=== PATIENT | female | born 1990 ===

== ENCOUNTER 2020-08-17 11:34 | Outpatient (CLI) | payer OTHER ==
[2020-08-18 02:12] LABS: SARS-CoV-2 MS2 Positive; SARS-CoV-2 N Gene Negative; SARS-CoV-2 S Gene Negative; SARS-CoV-2 by NAA Not Detected (NotDetected); SARS-CoV-2 orf1ab Negative
== END 2020-08-17 11:35 | disposition home or self-care (01) ==
LOC: LABBT 11:34
PROVIDERS: ATTEND Obstetrics & Gynecology
DX: Z01.812 Encounter for preprocedural laboratory examination (principal); Z20.828 Contact with and (suspected) exposure to other viral communicable diseases
CPT/HCPCS: 87635; U0003

== ENCOUNTER 2020-08-21 19:45 | Inpatient (IN) | payer OTHER ==
[~2020-08-21 19:45] MED LIST: Bupivacaine 0.25% HCL 30 ML VIAL ONE; Bupivacaine HCl 0.25%/Epi 0.0005/PF 10 ML VIAL FS ONE; Sodium Chloride 0.9% (PF) 10 ML VIAL ONE; ePHEDrine 50 MG/ML VIAL ONE
[2020-08-21] MEDS ORDERED: Acetaminophen 500 MG TAB PO PRN (23:37)
[2020-08-21] MEDS ORDERED: Ibuprofen 800 MG TAB PO PRN (23:37)
[2020-08-21] MEDS ORDERED: Penicillin G Potassium 5 MILL.UNITS in Sodium Chloride 0.9% 100 ML IVPB SCH (23:37)
[2020-08-21] MEDS ORDERED: Docusate 100 MG CAP PO PRN (23:37)
[2020-08-21] MEDS ORDERED: Diphenoxylate HCl/Atropine Tablet PO PRN ×2 (23:37)
[2020-08-21] MEDS ORDERED: HYDROcodone/Acetaminophen 5/325 mg Tablet PO PRN ×2 (23:37)
[2020-08-21] MEDS ORDERED: Misoprostol 200 MCG TAB PR PRN (23:37)
[2020-08-21] MEDS ORDERED: Lidocaine 1% (PF) 30 ML VIAL SC PRN (23:37)
[2020-08-21] MEDS ORDERED: Promethazine HCl 25 MG/ML VIAL IM PRN (23:37)
[2020-08-21] MEDS ORDERED: hydrALAZINE 20 MG/ML VIAL SLOW IVP PRN (23:37)
[2020-08-21] MEDS ORDERED: Butorphanol Tartrate 1 MG/ML VIAL SLOW IVP PRN (23:37)
[2020-08-21] MEDS ORDERED: Ondansetron PF 4 MG/2 ML Vial IVP PRN (23:37)
[2020-08-21] MEDS ORDERED: Zolpidem Tartrate 5 MG TAB PO PRN (23:37)
[2020-08-21] MEDS ORDERED: Lactated Ringer's 1,000 ML IV SCH (23:37)
[2020-08-21 23:52] VITALS: BMI 54.7
[2020-08-22 00:11] LABS: Hemoglobin 11.4 g/dL (12.0-16.0); Mean Corpuscular HGB CONC 34.2 g/dL (32.0-36.0); Mean Corpuscular Hemoglobin 29.4 pg (27.0-31.0); Mean Corpuscular Volume 85.9 fL (78.0-98.0); Mean Platelet Volume 8.9 fL (7.4-10.4); Platelet Count 221 thou/uL (130-400); Red Blood Cell (RBC) Count 3.89 mill/uL (4.20-5.40)
[2020-08-22 00:42] LABS: Syphilis Antibody Nonreactive (Nonreactive); Syphilis Antibody Index 0.06 S/CO (<1.00 Non-Reactive)
[2020-08-22 01:45] LABS: HBSAg Index 0.13 S/CO (0-0.99); Hep B Surf Ag Non-Reactive S/CO (NonReactive)
[2020-08-22] MEDS ORDERED: Lactated Ringer's 1,000 ML IV SCH (07:15)
[2020-08-22] MEDS ORDERED: Dextrose 5%-Lactated Ringers 1,000 ML IV SCH (07:15)
[2020-08-22] MEDS: Misoprostol 100 MCG TAB VAG SCH (07:45)
[2020-08-22] MEDS: Penicillin G 2.5 MILL.units 2.5 MILL.UNITS in Premix Bag 1 BAG IVPB SCH ×2 (10:31→19:14)
[2020-08-22] MEDS ORDERED: Fentanyl 4 mcg/Bup 0.1% Cadd 100 ML ONE ×2 (11:03→19:49)
[2020-08-22] MEDS: NS w/ Oxytocin 30 units 500 ML IVPB SCH (12:20)
[2020-08-22] MEDS ORDERED: Lactated Ringer's 500 ML IV PRN (12:55)
[2020-08-22] MEDS ORDERED: Acetaminophen 325 MG TAB PO PRN ×2 (12:55→22:53)
[2020-08-22] MEDS ORDERED: Promethazine HCl 25 MG/ML VIAL IM PRN (12:55)
[2020-08-22] MEDS ORDERED: diphenhydrAMINE 50 MG/ML VIAL IVP PRN (12:55)
[2020-08-22] MEDS ORDERED: ePHEDrine 50 MG/ML VIAL SLOW IVP PRN (12:55)
[2020-08-22] MEDS ORDERED: Naloxone HCl 0.4 mg/ml Vial IVP PRN ×2 (12:55)
[2020-08-22] MEDS ORDERED: Ondansetron PF 4 MG/2 ML Vial IVP PRN ×2 (12:55→22:52)
[2020-08-22] MEDS ORDERED: Communication Order-Pharmacy FS SCH (13:00)
[2020-08-22] MEDS ORDERED: Fentanyl 4 mcg/Bupivacaine 0.1% Cassette 100 ML EPIDURAL SCH (13:00)
[2020-08-22] MEDS ORDERED: diphenhydrAMINE 25 MG CAP PO PRN (22:52)
[2020-08-22] MEDS ORDERED: Bisacodyl 10 MG SUPP PR PRN (22:52)
[2020-08-22] MEDS ORDERED: Lanolin Ointment 7 GM TUBE TOP PRN (22:52)
[2020-08-22] MEDS ORDERED: Preparation H Ointment 28 GM TUBE PR PRN (22:52)
[2020-08-22] MEDS ORDERED: Misoprostol 200 MCG TAB VAG PRN (22:52)
[2020-08-22] MEDS ORDERED: Milk Of Magnesia 30 ML UDCUP PO PRN (22:52)
[2020-08-22] MEDS ORDERED: hydrALAZINE 20 MG/ML VIAL SLOW IVP PRN (22:52)
[2020-08-22] MEDS ORDERED: NS / Oxytocin 40 units/1000ml 1,000 ML IV SCH (23:00)
[2020-08-22] MEDS ORDERED: NS w/ Oxytocin 30 units 500 ML IV SCH (23:15)
[2020-08-23] MEDS: NS w/ Oxytocin 30 units 500 ML IVPB SCH ×14 (04:09→04:23)
[2020-08-23] MEDS: HYDROcodone/Acetaminophen 5/325 mg Tablet PO PRN ×4 (05:13→21:52)
[2020-08-23] MEDS: Benzocaine-Menthol 82.5 ML CAN TOP PRN (05:16)
[2020-08-23] MEDS: Misoprostol 100 MCG TAB VAG SCH ×2 (06:20→06:21)
[2020-08-23] MEDS: Penicillin G 2.5 MILL.units 2.5 MILL.UNITS in Premix Bag 1 BAG IVPB SCH ×2 (06:21→06:22)
[2020-08-23 07:09] LABS: Hemoglobin 10.8 g/dL (12.0-16.0); Mean Corpuscular HGB CONC 33.6 g/dL (32.0-36.0); Mean Corpuscular Hemoglobin 29.2 pg (27.0-31.0); Mean Corpuscular Volume 86.7 fL (78.0-98.0); Mean Platelet Volume 8.9 fL (7.4-10.4); Platelet Count 201 thou/uL (130-400); Red Blood Cell (RBC) Count 3.71 mill/uL (4.20-5.40); White Blood Cell (WBC) Count 13.6 thou/uL (4.8-10.8)
[2020-08-23] MEDS: Ferrous Sulfate 325 MG TAB PO SCH ×2 (08:46→17:47)
[2020-08-23] MEDS: Docusate Calcium (SURFAK) 240 MG CAP PO SCH ×2 (08:46→21:50)
[2020-08-23] MEDS: Ibuprofen 800 MG TAB PO SCH ×3 (08:46→23:51)
[2020-08-23] MEDS: Prenatal Vitamin 1 TAB PO SCH (08:46)
[2020-08-23] MEDS ORDERED: Adacel (T-DAP) 0.5 ML SYRINGE IM ONE (09:00)
[2020-08-24] MEDS: HYDROcodone/Acetaminophen 5/325 mg Tablet PO PRN ×4 (06:11→23:42)
[2020-08-24] MEDS: Docusate Calcium (SURFAK) 240 MG CAP PO SCH ×3 (08:01→22:18)
[2020-08-24] MEDS: Ibuprofen 800 MG TAB PO SCH ×3 (08:02→22:18)
[2020-08-24] MEDS: Prenatal Vitamin 1 TAB PO SCH (08:02)
[2020-08-24] MEDS: Benzocaine-Menthol 82.5 ML CAN TOP PRN (08:02)
[2020-08-24] MEDS: Ferrous Sulfate 325 MG TAB PO SCH ×2 (08:03→16:30)
[2020-08-24] MEDS ORDERED: FLU VACC QS2020-21(6MOS UP)/PF 60 MCG/0.5 ML SYRINGE IM ONE (09:00)
[2020-08-24 20:12] VITALS: BP 123/71; TEMP 98
== END 2020-08-24 23:46 | disposition home or self-care (01) | DRG 807 ==
LOC: L&D 23:20 → 3SW 08-23 02:15
PROVIDERS: ADMIT Obstetrics & Gynecology; ATTEND Obstetrics & Gynecology
PROC: 10E0XZZ Delivery of Products of Conception, External Approach (ICD-10-PCS; principal; 2020-08-22)
PROC: 10907ZC Drainage of Amniotic Fluid, Therapeutic from Products of Conception, Via Natural or Artificial Opening (ICD-10-PCS; 2020-08-22)
PROC: 3E033VJ Introduction of Other Hormone into Peripheral Vein, Percutaneous Approach (ICD-10-PCS; 2020-08-22)
PROC: 3E0P7VZ Introduction of Hormone into Female Reproductive, Via Natural or Artificial Opening (ICD-10-PCS; 2020-08-22)
DX: O99.824 Streptococcus B carrier state complicating childbirth (principal); Z37.0 Single live birth; Z20.822 Contact with and (suspected) exposure to COVID-19; O66.9 Obstructed labor, unspecified; Z3A.40 40 weeks gestation of pregnancy; O71.82 Other specified trauma to perineum and vulva
CPT/HCPCS: 36415; 85027; 86780; 86850; 86900; 86901; 87340; J2540; J2590; J3490; S0020